=== PATIENT | male | born 1945 | race Caucasian/White ===

== ENCOUNTER → 2021-02-09 | Outpatient (CLI) | payer OTHER | END | disposition home or self-care (01) | LOC: LAB 09:35 | PROVIDERS: ATTEND Family Medicine | DX: I25.10 Atherosclerotic heart disease of native coronary artery without angina pectoris (principal) | CPT/HCPCS: 93005 ==

== ENCOUNTER → 2024-02-06 | Outpatient (CLI) | payer MEDICARE ==
--- NOTE | 2024-02-06 16:19 | HMCSR ---
APPROVED REPORT EXAM: Two-dimensional and M-mode echocardiogram with Doppler and color Doppler. Study Details: Hx: morbidly obese INDICATION ICD: I35.0 Non-rheumatic aortic valve stenosis 2D Dimensions RVDd4.1 cmLVEF(%)50.0 (>50%)LVED Vol(simp.)118.0 mL IVSd1.1 (0.7-1.1cm)FS(%)26 %LVES Vol(simp.)42.9 mL LVDd5.1 (3.8-5.6cm)LA (2D)5.7 (1.6-4.0cm)LVEF(%, simp.)64 % PWd1.3 (0.7-1.1cm)LVOT diam2.0 (1.8-2.4cm)LA ESV INDEX (4CH)56.60 mL/m2 IVSs1.1 cmLA ESV INDEX (2CH)51.60 mL/m2 LVDs3.8 (2.5-4.0cm)LA ESV INDEX (BP)54.70 mL/m2 PWs1.3 cm M-Mode Dimensions EPSS0.7 cm LA (MM)6.7 (1.6-4.0cm) Ao Root(MM)3.0 (2.0-3.7cm) Aortic Valve AoV VTI0.8 mAo Peak GR65.0 mmHgLVOT VTI0.17 m SHO (VMAX)0.6 cm2Ao Mean GR34.0 mmHgAVA (VTI) 0.6 cm2 Mitral Valve MV E Nqkl230.7 cm/sDECEL Izxi834 ms MV A Vmax33.0 cm/sP 1/2 T52 ms E/A ratio3.7MVA (PHT)4.3 cm2 MR Max PG116 mmHg TDI E/E' Exvddm92.0E/E' Oshmibw94.2 Medial E' Peak V6.20 cm/sLateral E' Peak V7.20 cm/s Pulmonary Valve PV VTI0.23 mPV Mean GR2 mmHg Tricuspid Valve RAP (EST) 8 mmHgRVSP8.0 mmHg Left Ventricle Left ventricular cavity size is normal. LVEF is 55-60%. Stage I diastolic dysfunction. Right Ventricle The right ventricle is normal size. The right ventricular systolic function is normal. Atria The left atrium is severely dilated. LASVI 55mL/m. The right atrium is moderately dilated. Aortic Valve Aortic valve is trileaflet heavily calcified with restricted opening. Trace aortic regurgitation. The re is severe valvular aortic stenosis. Calculated aortic valve area is 0.6 cm2 . Mean AVG - 34 mmHg.L VOT VTI / AV VTI - 0.21 Mitral Valve There is mitral annular calcification. Mitral valve leaflets open well. There is trace of mitral valv e regurgitation noted. There is no mitral valve stenosis. Tricuspid Valve The tricuspid valve is normal in structure and function. There is no tricuspid valve regurgitation no alex. Pulmonic Valve The pulmonary valve is normal in structure and function. There is no pulmonic valvular regurgitation. Great Vessels The aortic root is normal in size. IVC is normal in size and collapses <50% with inspiration. Pericardium No pericardial effusion. Other Information Quality : Fair Conclusion Left ventricular cavity size is normal. LVEF is 55-60%. The left atrium is severely dilated. LASVI 55mL/m. The right atrium is moderately dilated. There is severe valvular aortic stenosis. Calculated aortic valve area is 0.6 cm2 . Mean AVG - 34 mmHg.LVOT VTI / AV VTI - 0.21
== END | disposition home or self-care (01) ==
LOC: RAH 13:10
PROVIDERS: ATTEND Internal Medicine Cardiovascular Disease
DX: I08.0 Rheumatic disorders of both mitral and aortic valves (principal); I35.0 Nonrheumatic aortic (valve) stenosis
CPT/HCPCS: 93306